=== PATIENT | male | born 1965 | race Hispanic/Latino ===

== ENCOUNTER 2017-05-06 06:41 | Emergency (ER) | payer SELFPAY ==
[~2017-05-06] VITALS: Ht 165.1 cm; Wt 66.0 kg
[~2017-05-06 06:41] MED LIST: AMOXICILLIN500 MG PO; CORTISPORIN OP7.5 ML OP; CORTISPORIN OTI10 ML AD; LORTAB 7.5 OR; NAPROSYN500 MG PO; NO; PATANOL0.1 % OP; PYRIDIUM200 MG PO; SEPTRA DS1 TAB PO; ZYRTEC10 MG PO
[2017-05-06 08:14] VITALS: BP 135/77
[2017-05-06] MEDS ORDERED: CORTISPORIN11 OT (08:16)
== END 2017-05-06 08:22 | disposition home or self-care (01) | DRG 156 ==
LOC: ED 06:41
DX: H60.91 Unspecified otitis externa, right ear (principal); H92.01 Otalgia, right ear

== ENCOUNTER 2023-05-23 16:17 | Emergency (ER) | payer SELFPAY ==
[~2023-05-23] VITALS: Ht 165.1 cm; Wt 67.0 kg
[~2023-05-23 16:17] MED LIST changes: +CORTISPORIN11 OT
[2023-05-23 17:30] LABS: URINE BILIRUBIN - DIPSTICK Negative (NEGATIVE); URINE BLOOD DIPSTICK Negative (NEGATIVE); URINE GLUCOSE - DIPSTICK Negative (NEGATIVE); URINE KETONE Negative (NEGATIVE); URINE LEUK ESTERASE Negative (NEGATIVE); URINE NITRITE - DIPSTICK Negative (Negative); URINE PH 8.5 (4.5-8.0); URINE PROTEIN - DIPSTICK Trace mg/dL (NEG-TRACE); URINE UROBILINOGEN - DIPSTICK 0.2 E.U./dL (0.2)
[2023-05-23 17:32] LABS: URINE COLOR Yellow
[2023-05-23 19:53] LABS: BASO% 0.3 % (0-3); EOS% 2.1 % (0-8); HEMATOCRIT 40.3 % (39.0-50.0); HEMOGLOBIN 13.1 g/dl (14.0-18.0); IMMATURE GRANULOCYTES 0.3 % (0.0-5.0); LYMPH% 26.4 % (15-41); MEAN CORPUSCULAR HGB 28.9 pG CALC (26.0-32.0); MEAN CORPUSCULAR HGB CONC 32.5 g/dL CAL (32.0-36.0); MONO% 10.3 % (2-13); NEUT# 5.8 thou/uL (1.82-7.42); NEUT% 60.6 % (42-76); RED BLOOD COUNT 4.53 mill/uL (4.70-6.10); RED CELL DISTRI WIDTH 12.7 % (11.5-15.5)
[2023-05-23 20:21] LABS: ALBUMIN 4.6 g/dL (3.2-5.0); ALKALINE PHOSPHATASE 53 u/l (38-126); ANION GAP 13 (6-22 (CALC)); BILIRUBIN, TOTAL 0.6 mg/dL (0.2-1.3); BUN 16 mg/dL (9-20); BUN/CREATININE RATIO 20 (12-20 (CALC)); CARBON DIOXIDE 30 mmol/l (22-30); CHLORIDE 100 mmol/l (95-108); CREATININE 0.8 mg/dL (0.7-1.3); GFR FOR AFR.AMER. > 60 ML/MIN (>=60 (CALC)); GFR OTHER RACES > 60 ML/MIN (>=60 (CALC)); POTASSIUM 3.7 mmol/l (3.5-5.1); SGOT/AST 45 u/l (17-59); SODIUM 139 mmol/l (137-146); TOTAL PROTEIN 7.8 g/dL (6.3-8.2)
[2023-05-23] MEDS ORDERED: METHOCARBAMOL500 MG PO (21:46)
[2023-05-23 22:22] VITALS: BP 134/90
== END 2023-05-23 22:50 | disposition home or self-care (01) | DRG 556 ==
LOC: ED 16:17
PROVIDERS: Family Medicine
DX: M62.838 Other muscle spasm (principal)

== ENCOUNTER 2024-04-24 17:27 | Emergency (ER) | payer SELFPAY ==
[~2024-04-24] VITALS: Ht 165.1 cm; Wt 67.0 kg
[~2024-04-24 17:27] MED LIST changes: +METHOCARBAMOL500 MG PO
[2024-04-24 18:54] LABS: URINE BILIRUBIN - DIPSTICK Negative (NEGATIVE); URINE BLOOD DIPSTICK Negative (NEGATIVE); URINE GLUCOSE - DIPSTICK Negative (NEGATIVE); URINE KETONE Negative (NEGATIVE); URINE LEUK ESTERASE Negative (NEGATIVE); URINE NITRITE - DIPSTICK Negative (Negative); URINE PROTEIN - DIPSTICK Negative (NEG-TRACE); URINE SPECIFIC GRAVITY 1.015
[2024-04-24 18:55] LABS: URINE COLOR Yellow
[2024-04-24] MEDS ORDERED: PHENAZOPYRIDINE HCL 100 MG/TAB PO ONE (19:45)
[2024-04-24] MEDS ORDERED: PHENAZOPYRIDIN100 M1 PO (19:48)
[2024-04-24 19:55] VITALS: BP 133/80
== END 2024-04-24 20:12 | disposition home or self-care (01) | DRG 696 ==
LOC: ED 17:27
PROVIDERS: Nurse Practitioner
DX: R30.0 Dysuria (principal)

== ENCOUNTER 2024-05-06 08:15 | Emergency (ER) | payer SELFPAY ==
[~2024-05-06] VITALS: Ht 165.1 cm; Wt 66.0 kg
[2024-05-06] VITALS (7 sets, daily range): BP systolic 124–149; BP diastolic 83–95
[~2024-05-06 08:15] MED LIST changes: +PHENAZOPYRIDIN100 M1 PO
[2024-05-06] MEDS ORDERED: LIDOcaine HCl 1% (Local Anesth.) 20 ML VIAL STI STA (08:29)
[2024-05-06] MEDS ORDERED: POVIDONE IODINE 0.5 OZ/BTL TOP ONE (08:30)
[2024-05-06] MEDS ORDERED: BACTRIM DS1 TAB PO (08:35)
== END 2024-05-06 09:52 | disposition home or self-care (01) | DRG 603 ==
LOC: ED 08:15
PROC: 0H96XZZ Drainage of Back Skin, External Approach (ICD-10-PCS; principal; 2024-05-06)
DX: L02.212 Cutaneous abscess of back [any part, except buttock and flank] (principal)

== ENCOUNTER 2024-06-29 06:08 | Emergency (ER) | payer OTHER ==
[~2024-06-29] VITALS: Ht 165.1 cm; Wt 64.0 kg
[2024-06-29 06:08] VITALS: BP 114/83
[~2024-06-29 06:08] MED LIST changes: +BACTRIM DS1 TAB PO
== END 2024-06-29 06:42 | disposition home or self-care (01) | DRG 603 ==
LOC: ED 06:08
DX: L02.212 Cutaneous abscess of back [any part, except buttock and flank] (principal)